=== PATIENT | female | born 1940 | race American Indian/Alaskan Native ===

== ENCOUNTER 2017-12-11 13:42 | Outpatient (CLI) | payer MEDICARE ==
--- NOTE | 2017-12-11 13:59 | XRay Report ---
XRAY LEFT SHOULDER THREE VIEWS: 12/11/17 13:42:00 CLINICAL: Left shoulder pain. FINDINGS: No fracture or dislocation. Severe glenohumeral joint osteoarthritis with complete loss of the joint space, subchondral glenoid and humeral geodes and a large inferior glenoid osteophyte. A small inferior humeral osteophyte. Normal acromioclavicular joint. Mild osteopenia. IMPRESSION: Severe glenohumeral joint osteoarthritis.
== END 2017-12-11 13:43 | disposition home or self-care (01) ==
LOC: SPVIMAG 13:42
PROVIDERS: ATTEND Orthopaedic Surgery Sports Medicine
DX: M19.012 Primary osteoarthritis, left shoulder (principal); M85.812 Other specified disorders of bone density and structure, left shoulder